=== PATIENT | female | born 1985 | race Caucasian/White ===

== ENCOUNTER 2017-01-26 08:17 | Emergency (ER) | payer MEDICAID, OTHER ==
[~2017-01-26] VITALS: Ht 157.5 cm; Wt 57.8 kg
[~2017-01-26 08:17] MED LIST: IBUP800T25 PO
[2017-01-26 08:19] VITALS: Ht 157.5 cm; Wt 57.8 kg
[2017-01-26] MEDS ORDERED: AMOX500C2 PO (08:56)
--- NOTE | 2017-01-26 09:00 | ERD ---
ER Documentation Chief Complaint Chief Complaint PT with cold symptoms and CWP X 3 days. HPI 31-year-old female presents with a chief complaints of cough 3 days. currently 6 weeks . States her throat hurts when she coughs. Has not taken any medication to relieve symptoms. Denies fever, chills, headache, neck stiffness, chest pain with exertion, shortness of breath, swelling, abdominal pain, nausea, vomiting, diarrhea, constipation. Patient has no other complaints and describes no other associated manifestations. Nursing notes have been reviewed and are consistent with history given. ROS All systems reviewed and are negative except as per history of present illness. Medications Home Meds Active Scripts Amoxicillin* (Amoxicillin*) 500 Mg Cap, 500 MG PO TID for 7 Days, CAP Prov:DAREK ELIZALDE PA-C 01/26/17 Ibuprofen* (Motrin*) 800 Mg Tab, 800 MG PO Q8, #30 TAB 0 Refills Prov:KASIA HILLIARD PA-C 05/06/15 Allergies Allergies: Coded Allergies: No Known Allergy (Unverified , 05/05/15) PMhx/Soc History of Surgery: No Anesthesia Reaction: No Hx Neurological Disorder: No Hx Respiratory Disorders: No Hx Cardiac Disorders: No Hx Psychiatric Problems: No Hx Miscellaneous Medical Probl: No Hx Alcohol Use: No Hx Substance Use: No Hx Tobacco Use: No Physical Exam Vitals Vital Signs Date Time Temp Pulse Resp B/P Pulse Ox O2 Delivery O2 Flow Rate FiO2 01/26/17 08:19 98.0 87 16 112/56 99 Physical Exam Const: Healthy-appearing. Well-nourished. Well-developed. No acute distress. Pulm: No dyspnea, stridor, tripoding or drooling. Good air movement. Clear to auscultation in all lung pedro bilaterally. Neck: No cervical lymphadenopathy, masses or goiter palpated. Trachea midline. Supple ~ No meningismus. Auscultation reviled good air movement and no bruits. Nose: Normal nose without discharge, septal deviation, or sinus tenderness. Cardio: Regular rate and rhythm; No murmurs, gallops or rubs auscultated. No JVD grossly observed. Radial and posterior tibial pulses 2+ bilaterally. No cyanosis. Capillary refill less than 2 seconds. Oral: No oral edema visualized. Mucous membranes moist and pink. Head: Normocephalic, Atraumatic. Eyes: Non-injected; No scleral erythema, discharge or foreign body. EOMI and KENNEDY bilaterally. Ears: Normal External Ears, EACs clear, TM normal bilaterally without erythema. Abd: Soft, non tender, non distended. No guarding, masses. Normal bowel sounds. No McBurney's point tenderness. MS: Normal motor strength, normal tone with gross examination. Skin: No petechiae or rashes. No ulcer, induration, jaundice. Good turgor. Back: No midline, flank or CVA tenderness. Ext: No cyanosis, edema or palpable cord. Normal movement of all extremities grossly observed. Neur: Awake, alert and oriented x3. Neurovascularly intact bilaterally. Psych: Normal Mood and Affect. Procedures/MDM Patient is being worked up and evaluated for a chief complaint of cough as described in the history. Physical exam was unremarkable. At this time I have little suspicion for pneumonia, pneumothorax, foreign body, asthma, or pulmonary embolism. X-ray was ordered to rule out pneumonia, the patient refused. The current most likely diagnosis is acute bronchitis versus other URI. The treatment plan will thus include prophylactic antibiotics. I spoke with my attending who agrees with the assessment and plan. I have spoken with them regarding their condition and future management. They have verbally responded that they understand and agree to their status and treatment plan. I have spoke with my attending who agrees with the assessment and plan. The patients vitals are stable, and their current condition is appropriate for discharge. The patient will be given discharge instructions with return precautions. Discharge medications: Amoxicillin 500 mg p.o. 3 times daily 7 days. Departure Diagnosis: Primary Impression: Upper respiratory infection URI type: unspecified viral URI Qualified Code: J06.9 - Viral upper respiratory tract infection Condition: Stable Patient Instructions: Preventing Common Respiratory Infections Additional Instructions: Follow up with your PCP within the next 1-3 days for a more thorough evaluation and a possible referral to a specialist. Return the the emergency department immediately if symptoms worsen or change. If you have any questions regarding medications, ask your pharmacist or us before you leave. If any adverse reactions occur while taking your medications, discontinue the treatment and return to the emergency department immediately. Take your medications as directed, and complete the entire course of treatment. DAREK ELIZALDE PA-C Jan 26, 2017 09:00
== END 2017-01-26 09:14 | disposition home or self-care (01) ==
LOC: FTE 08:17
DX: J06.9 Acute upper respiratory infection, unspecified (principal)
CPT/HCPCS: 99283

== ENCOUNTER 2017-11-27 21:57 | Emergency (ER) | END 2017-11-28 01:11 | disposition home or self-care (01) ==